=== PATIENT | male | born 1975 | race Caucasian/White ===

== ENCOUNTER 2019-10-23 11:42 | Inpatient (IN) | payer MEDICAID ==
[~2019-10-23] VITALS: Ht 175.3 cm; Wt 77.1 kg
--- NOTE | 2019-10-23 11:47 | NUR ---
BIB SELF C/O R ARM ABSCESS STARTED 2 DAYS AGO, PT AWAKE, ALERT, -SOB, NAD NOTED, VSS, PENDING MD COHN
--- NOTE | 2019-10-23 12:19 | NUR ---
CALLED HOUSE SUP FOR MS BED. MOVE SHEET TURNED IN TO ADMITTING.
[2019-10-23] MEDS ORDERED: PIPERACILLIN /TAZOBACTAM 3.375 G in IV D5W 50 ML IV ONE (12:30)
[2019-10-23] MEDS ORDERED: VANCOMYCIN 1 GM in IV D5W 250 ML IV ONE (12:30)
[2019-10-23 12:38] LABS: BASOPHILS % (AUTO) 0.4 % (0.0-2.0); HEMATOCRIT 40 % (39-51); HEMOGLOBIN 13.6 g/dL (13.5-17.5); LYMPHOCYTES # (AUTO) 0.8 /CMM (0.8-4.8); LYMPHOCYTES % (AUTO) 6.3 % (20.0-44.0); MEAN CORPUSCULAR HGB CONC 34 g/dl (31.0-36.0); MEAN CORPUSCULAR VOLUME 91 fL (80-96); MONOCYTES # (AUTO) 0.9 /CMM (0.1-1.30); MONOCYTES % (AUTO) 6.5 % (2.0-12.0); NEUTROPHILS # (AUTO) 11.5 /CMM (1.8-8.9); NEUTROPHILS % (AUTO) 85.8 % (43.0-81.0); PLATELET COUNT (AUTO) 273 /CMM (150-450); RED BLOOD CELL COUNT(AUTO) 4.35 MIL/uL (4.5-6.0); WHITE BLOOD COUNT (AUTO) 13.4 K/uL (4.3-11.0)
[2019-10-23 12:47] LABS: CARBON DIOXIDE 30 mmol/L (21-32); CHLORIDE 99 mmol/L (98-107); CREATININE 1.2 mg/dL (0.6-1.3); GLUCOSE 154 mg/dL (74-106); POTASSIUM 4.2 mmol/L (3.5-5.1); SODIUM SERUM 135 mmol/L (136-145); UREA NITROGEN, BLOOD 15 mg/dL (7-18)
--- NOTE | 2019-10-23 12:48 | NUR ---
REPORT GIVEN TO STELLA OAKLEY FOR ANSHUL PT WILL BE TRANSPORTED TO 3RD FLOOR MS
[2019-10-23 12:53] LABS: ALANINE AMINOTRANSFERASE 24 U/L (12-78); ALBUMIN 3.1 g/dL (3.4-5.0); ALKALINE PHOSPHATASE 69 U/L (46-116); ASPARTATE AMINOTRANSFERASE 24 U/L (15-37); BILIRUBIN,DIRECT 0.1 mg/dL (0.0-0.2); BILIRUBIN,TOTAL 0.9 mg/dL (0.2-1.0); TOTAL PROTEIN, SERUM 6.7 g/dL (6.4-8.2)
[2019-10-23] MEDS ORDERED: CT SWABBABLE VALVE TRANS SET 1 EA INFUS.SET MC ONE (13:08)
[2019-10-23] MEDS ORDERED: IOHEXOL-300 100 ML VIAL IV ONE (13:08)
[2019-10-23] MEDS ORDERED: IV NS 0.9% 250 ML IV ONE (13:08)
--- NOTE | 2019-10-23 14:00 | NUR ---
MS RN ADMITTING NOTES ADMITTED PT FROM ER WITH RT AC ABSCESS.ALSO WITH RT ARMPIT RED LUMP.DENIES ANY PAIN ON RT ARMPIT LUMP.NO SOB ON ROOM AIR.AMBULATES AD Y[place]ANDY WITH STEADY GAIT.WITH BRP.IV H/L TO LFA G 20 INTACT AND PATENT.NOTIFIED AMI LI FOR ADMITTING ORDERS.CALL LIGHT PLACED WITHIN REACH.
[2019-10-23 14:22] LABS: APPEARANCE,URINE Clear (CLEAR); BILIRUBIN,URINE Negative (NEGATIVE); BLOOD, URINE Negative Ery/uL (NEGATIVE); COLOR,URINE Yellow (YELLOW); KETONES,URINE Negative (NEGATIVE); LEUKOCYTE ESTERASE ,URINE Negative (NEGATIVE); NITRITE, URINE Negative (NEGATIVE); PH,URINE 8.5 (5.0-8.0); PROTEIN,URINE Negative (NEGATIVE); UGLUCOSE Negative (NEGATIVE)
[2019-10-23 16:00] VITALS: BP 121/76
[2019-10-23] MEDS ORDERED: FEE PK DOSING 1 MIN EA MC ONE (17:29)
[2019-10-23] MEDS ORDERED: ONDANSETRON HCL/PF 4 MG/2 ML VIAL IVP PRN (17:30)
[2019-10-23] MEDS ORDERED: LIDOCAINE 2%-EPI 1:100,000 30 ML VIAL TP ONE (17:30)
[2019-10-23] MEDS ORDERED: HYDROCODONE/APAP 5/325MG 1 EACH TABLET PO PRN (17:30)
[2019-10-23] MEDS ORDERED: ACETAMINOPHEN 325 MG TABLET PO PRN (17:30)
[2019-10-23] MEDS: CEFTRIAXONE 2 G in IV D5W 100 ML IV SCH (18:00)
[2019-10-23] MEDS: IV NS 0.9% 1,000 ML IV SCH (18:59)
[2019-10-23] MEDS ORDERED: MORPHINE SULFATE INJ 2 MG/ML DISP.SYRIN IV ONE (19:00)
--- NOTE | 2019-10-23 19:06 | NUR ---
MS/RN PATIENT IN BED, AWAKE, ALERT AND ORIENTED X 4. BREATHING EVEN AND UNLABORED ON ROOM AIR. DENIES ACUTE RESPIRATORY DISTRESS. IVF OF NS AT 50 ML/HR ON LEFT HAND 20G. ITS CLEAN, DRY AND INTACT. NO REDNESS NO INFILTRATION. ALL DUE MEDICATIONS GIVEN. SAFETY PRECAUTIONS IN PLACE. BED IN LOWEST POSITION, LOCKED, AND CALL LIGHT KEPT WITHIN REACH. WILL ENDORSE TO ONCOMING NURSE.
--- NOTE | 2019-10-23 19:30 | NUR ---
MS RN OPENING NOTES PATIENT SLEEPING IN BED, EASY TO AWAKEN. ALERT & ORIENTED X 4. ON ROOM AIR. RIGHT ARM WRAPPED IN GAUZE, DRY & INTACT. IV ON LEFT FOREARM, SIZE 20, INTACT & PATENT, NS RUNNING AT 50 CC/HR. NO S/S OF ACUTE RESPIRATORY DISTRESS AND NO COMPLAINTS OF PAIN AT THIS TIME. BED LOCKED, SEMI-HERRERA'S POSITION, SIDE RAILS X2, CALL LIGHT WITHIN REACH. WILL CONTINUE TO MONITOR.
[2019-10-23 20:00] VITALS: BP 131/74
--- NOTE | 2019-10-23 20:41 | NUR ---
MS RN NOTES PATIENT COMPLAINING OF SHARP PAIN LOCATED IN HIS RIGHT ARM, RATED 7/10. PER PATIENT'S REQUEST ADMINISTERED PRN NORCO 5/325 1 TAB. VITAL SIGNS - BP 131/74 HR: 97 RR: 20 SPO2: 97 ON ROOM AIR. CALL LIGHT WITHIN REACH. WILL CONTINUE TO MONITOR.
[2019-10-23] MEDS: VANCOMYCIN 1 GM in IV D5W 250 ML IV SCH (22:37)
[2019-10-24] MEDS: VANCOMYCIN 1 GM in IV D5W 250 ML IV SCH ×3 (05:47→21:12)
--- NOTE | 2019-10-24 06:58 | NUR ---
MS CLOSING NOTES PATIENT SLEEPING IN BED, EASY TO AWAKEN. ALERT & ORIENTED X 4. RIGHT AC DRESSING DRY AND INTACT. NO COMPLAINTS OF PAIN AT THIS TIME. IV ON LEFT FA, SIZE 20, INTACT PATENT, NS RUNNING AT 50 ML/HR. BED LOCKED, SEMI-HERRERA'S POSITION, CALL LIGHT WITHIN REACH. WILL ENDORSE TO DAY SHIFT TO FOLLOW PLAN OF CARE.
[2019-10-24 07:09] LABS: BASOPHILS % (AUTO) 0.2 % (0.0-2.0); EOSINOPHILS % (AUTO) 1.6 % (0.0-6.0); HEMATOCRIT 42 % (39-51); HEMOGLOBIN 14.5 g/dL (13.5-17.5); LYMPHOCYTES % (AUTO) 7.5 % (20.0-44.0); MEAN CORPUSCULAR HGB CONC 35 g/dl (31.0-36.0); MEAN CORPUSCULAR VOLUME 91 fL (80-96); MONOCYTES # (AUTO) 1.1 /CMM (0.1-1.30); MONOCYTES % (AUTO) 8.1 % (2.0-12.0); NEUTROPHILS # (AUTO) 10.7 /CMM (1.8-8.9); NEUTROPHILS % (AUTO) 82.6 % (43.0-81.0); PLATELET COUNT (AUTO) 247 /CMM (150-450); RED BLOOD CELL COUNT(AUTO) 4.56 MIL/uL (4.5-6.0)
[2019-10-24 07:13] LABS: BILIRUBIN,TOTAL 0.7 mg/dL (0.2-1.0); CALCIUM, SERUM 8.9 mg/dL (8.5-10.1); PHOSPHORUS 2.9 mg/dL (2.5-4.9); POTASSIUM 4.6 mmol/L (3.5-5.1); TOTAL PROTEIN, SERUM 6.8 g/dL (6.4-8.2)
[2019-10-24 07:29] LABS: THYROID STIMULATING HORMONE 1.326 uIU/mL (0.358-3.74)
--- NOTE | 2019-10-24 07:31 | NUR ---
RN OPENING NOTE PT WAS RECEIVED IN BED AT LOWEST AND LOCKED POSITION WITH SIDE RAILS UP X2, A/O X4 BREATHING EVEN AND UNLABORED ON RA WITH NO S/S OF ANY DISTRESS OR PAIN AT THIS TIME, DRESSING ON RIGHT AC IS DRY AND INTACT, IV IS PATENT AND INTACT, SAFETY PRECAUTIONS IN PLACE, CALL LIGHT IN REACH, WILL MONITOR ACCORDINGLY
[2019-10-24 08:00] VITALS: BP 109/65
[2019-10-24] MEDS: NICOTINE PATCH (14MG) 14 MG PATCH.TD24 TD SCH (08:11)
[2019-10-24] MEDS: PANTOPRAZOLE 40 MG VIAL IV SCH (08:11)
[2019-10-24] MEDS: IV NS 0.9% 1,000 ML IV SCH (13:47)
--- NOTE | 2019-10-24 14:39 | NUR ---
RN NOTE NEW IV PLACED IN YONI GAUGE 22 AT THIS TIME, PREVIOUS IV ON LFA GAUGE 20 REMOVED
[2019-10-24] MEDS ORDERED: LORAZEPAM INJ 2 MG/ML VIAL IV STA (15:37)
[2019-10-24 15:54] VITALS: BP 119/73
[2019-10-24] MEDS: CEFTRIAXONE 2 G in IV D5W 100 ML IV SCH (17:13)
--- NOTE | 2019-10-24 18:36 | NUR ---
RN CLOSING NOTE PT IN BED AT LOWEST AND LOCKED POSITION WITH SIDE RAILS UP X2, A/O X4 BREATHING EVEN AND UNLABORED NO S/S OF ANY DISTRESS OR PAIN AT THIS TIME, DRESSING IS DRY AND INTACT, IV IS PATENT AND INTACT, SAFETY PRECAUTIONS IN PLACE, CALL LIGHT IN REACH, ALL NEEDS ATTENDED TO, WILL ENDORSE TO NIGHT RN FOR ANSHUL.
--- NOTE | 2019-10-24 19:47 | NUR ---
RN OPENING NOTES Patient received resting in bed a/o x4, able to make all needs known. Stale on room air, breathing even and unlabored, no complaints of SOB. No signs of acute distress noted and currently no complaints of pain or discomfort. IV located on L UA #22 running NS @ 50 ml/ hr. Safety precautions in place with bed in lowest position, seizure precautions in place, breaks on, and call light within reach. Will continue to monitor.
[2019-10-24 20:00] VITALS: BP 109/70
--- NOTE | 2019-10-25 01:03 | NUR ---
MS RN NOTES DRESSING CHANGED ON R AC ABSCESS. SCANT SEROSANGUINEOUS DRAINAGE NOTED. REAPPLIED WITH KRILLEX. PATIENT HAD NO COMPLAINTS OF PAIN OR DISCOMFORT. WILL CONTINUE TO MONITOR.
[2019-10-25] MEDS: VANCOMYCIN 1 GM in IV D5W 250 ML IV SCH ×2 (05:31→14:06)
--- NOTE | 2019-10-25 05:54 | NUR ---
MS RN CLOSING NOTES PATIENT CURRENTLY SLEEPING IN BED A/O X4. STABLE ON RA, BREATHING EVEN AND UNLABORED, NO SOB NOTED. NO COMPLAINTS OF PAIN OR DISCOMFORT, AND NO ACUTE DISTRESS NOTED. PATIENT ON TELE READING ST 80'S. IV LOCATED ON R AC #20 RUNNING NS. DRESSING CHANGED, KEPT DRY AND CLEAN LOCATE ON R AC. ALL NEEDS WERE ATTENDED TO, PATIENT WAS KEPT CLEAN AND DRY THROUGHOUT THE NIGHT. SAFETY PRECAUTIONS IN PLACE WITH BED IN LOWEST POSITION, BREAKS ON, AND CALL LIGHT WITHIN REACH. WILL ENDORSE TO ONCOMING SHIFT ABOUT ANSHUL.
--- NOTE | 2019-10-25 05:56 | NUR ---
MS RN CLOSING NOTES PATIENT CURRENTLY RESTING IN BED A/O x4. STABLE ON ROOM AIR WITH BREATHING EVEN AND UNLABORED, NO COMPLAINTS OF SOB. NO ACUTE DISTRESS NOTED. NO COMPLAINTS OF PAIN OR DISCOMFORT. IV LOCATED ON L AC #20 RUNNING D5 1/2 NS @ 75 ML/ HR. SAFETY PRECAUTIONS IN PLACE WITH BED IN LOWEST POSITION, CALL LIGHT WITHIN REACH, AND BREAKS ON. ALL NEEDS WERE ATTENDED TO THROUGHOUT THE NIGHT, PATIENT WAS KEPT CLEAN AND DRY. WILL ENDORSE TO ONCOMING SHIFT ABOUT ANSHUL.
--- NOTE | 2019-10-25 07:40 | NUR ---
MS RN OPENING NOTES RECEIVED PATIENT IN BED, AWAKE, A/O X4. PATIENT ON ROOM AIR BREATHING EVENLY WITH NO SIGNS OF SOB OR ANY ACUTE DISTRESS. PATIENT DENIES ANY PAIN AT THIS TIME. LFA SL GAUGE # 20 INTACT AND PATENT. NO SIGNS OF INFILTRATION NOTED AT THIS TIME. SAFETY PRECAUTIONS IN PLACE: BED IN LOW POSITION AND LOCKED, RAILS UP X2, CALL LIGHT WITHIN REACH. WILL CONTINUE TO MONITOR PATIENT.
[2019-10-25 08:00] VITALS: BP 116/60
[2019-10-25] MEDS: PANTOPRAZOLE 40 MG VIAL IV SCH (08:36)
[2019-10-25] MEDS: NICOTINE PATCH (14MG) 14 MG PATCH.TD24 TD SCH (08:37)
[2019-10-25] MEDS: IV NS 0.9% 1,000 ML IV SCH (10:07)
[2019-10-25] MEDS ORDERED: SULF1TAB48 PO (11:31)
--- NOTE | 2019-10-25 17:08 | NUR ---
MS STOREROOM CLERK NOTES PATIENT DISCHARGED HOME IN STABLE MEDICAL CONDITION, AMBULATORY WITH STEADY GAIT, ACCOMPANIED BY THE [employer] DEVELOPER TO THE LOBBY. PATIENT LEFT UNIT AT 1600 AMBULATORY AND WILL GO TO HIS FRIENDS HOUSE TO STAY. A/O X4. ABLE TO MAKE NEEDS KNOWN. DISCHARGE INSTRUCTION GIVEN TO PATIENT. IV LINE AND NAME ARMBAND REMOVED. ALL BELONGINGS ACCOUNTED FOR AND THE FORM WAS SIGNED BY THE PATIENT. MD AND CHARGE NURSE AWARE OF DISCHARGE.
== END 2019-10-25 16:00 | disposition home or self-care (01) | DRG 710 ==
LOC: ER 11:49 → MED 12:45
PROVIDERS: ADMIT Registered Nurse; ATTEND Registered Nurse
PROC: 0J9D0ZZ Drainage of Right Upper Arm Subcutaneous Tissue and Fascia, Open Approach (ICD-10-PCS; principal; 2019-10-23)
DX: A41.9 Sepsis, unspecified organism (principal); E87.2 Acidosis; L02.413 Cutaneous abscess of right upper limb; L03.113 Cellulitis of right upper limb; Z59.0 Homelessness; F17.210 Nicotine dependence, cigarettes, uncomplicated; F15.93 Other stimulant use, unspecified with withdrawal; F19.10 Other psychoactive substance abuse, uncomplicated; D72.829 Elevated white blood cell count, unspecified; R20.2 Paresthesia of skin
CPT/HCPCS: 36415; 71045-TC; 73201-TC; 80048-TC; 80053-TC; 80061-TC; 80076-TC; 80202-TC; 81000-TC; 83605-TC; 83735-TC; 84100-TC; 84443-TC; 84484-TC; 85025-TC; 85730-TC; 87040-TC; 87070-TC; 87081-TC; 87086-TC; A6403; A6407; C9113; G0378; J0696; J2060; J2270; J2543; J3370; J3490; J7030; J7050; J7060; Q9967

== ENCOUNTER 2022-02-04 14:51 | Emergency (ER) | payer MEDICAID, OTHER ==
[~2022-02-04] VITALS: Ht 175.3 cm; Wt 77.1 kg
[~2022-02-04 14:51] MED LIST: SULF1TAB48 PO
[2022-02-04 15:00] VITALS: BP 109/70
[2022-02-04] MEDS ORDERED: LIDOCAINE 1%-EPI 1:100,000 20 ML VIAL ONE (15:28)
[2022-02-04] MEDS ORDERED: SULFAMETH/TRIMETH 800/160 MG 1 UDTAB TABLET ONE (15:44)
[2022-02-04] MEDS ORDERED: SULF1TAB48 PO (15:48)
--- NOTE | 2022-02-04 15:57 | NUR ---
Patient discharged to [facility] unit #[id number] in stable condition. Written and verbal after care instructions given. Patient verbalizes understanding of instruction.
[2022-02-04] MEDS ORDERED: SULFAMETH/TRIMETH 800/160 MG 1 UDTAB TABLET PO ONE (16:00)
== END 2022-02-04 15:58 ==
LOC: ER 14:54
DX: L02.414 Cutaneous abscess of left upper limb (principal); F17.200 Nicotine dependence, unspecified, uncomplicated; Z59.00 Homelessness unspecified
CPT/HCPCS: 10060; 99283; A6407; J3490